=== PATIENT | female | born 1935 | race Two or more races ===

== ENCOUNTER 2022-01-05 12:54 | Emergency (ER) | payer OTHER ==
[~2022-01-05] VITALS: Ht 152.4 cm; Wt 68.0 kg
[2022-01-05] MEDS ORDERED: OMEPRAZOLE40 MG PO (13:35)
[2022-01-05] MEDS ORDERED: AMLODIPINE BESY10 MG PO (13:35)
[2022-01-05] MEDS ORDERED: LOSARTAN POTAS100 MG PO (13:35)
[2022-01-05] MEDS ORDERED: BUSPIRONE HCL5 MG PO (13:35)
== END 2022-01-05 20:14 | disposition home or self-care (01) ==
LOC: ER 12:54
DX: R42 Dizziness and giddiness (principal); I10 Essential (primary) hypertension; Z88.2 Allergy status to sulfonamides

== ENCOUNTER 2022-09-14 14:04 | Emergency (ER) | payer OTHER ==
[~2022-09-14] VITALS: Ht 167.6 cm; Wt 65.8 kg
[~2022-09-14 14:04] MED LIST: AMLODIPINE BESY10 MG PO; BUSPIRONE HCL5 MG PO; LOSARTAN POTAS100 MG PO; OMEPRAZOLE40 MG PO
== END 2022-09-14 18:55 | disposition home or self-care (01) ==
LOC: ER 14:04
DX: J06.9 Acute upper respiratory infection, unspecified (principal); Z20.822 Contact with and (suspected) exposure to COVID-19; Z88.2 Allergy status to sulfonamides

== ENCOUNTER 2023-01-29 14:18 | Emergency (ER) | payer OTHER ==
[~2023-01-29] VITALS: Ht 167.6 cm; Wt 65.8 kg
== END 2023-01-29 16:51 | disposition home or self-care (01) ==
LOC: ER 14:18
DX: M54.89 Other dorsalgia (principal); Z88.2 Allergy status to sulfonamides